=== PATIENT | female | born 1985 | race Caucasian/White ===

== ENCOUNTER 2017-06-11 15:40 | Emergency (ER) | payer SELFPAY ==
[2017-06-11] MEDS ORDERED: MAGNE/ALUM HYDROXD 30 ML UCUP ONE (17:28)
[2017-06-11] MEDS ORDERED: NA CHLORIDE 0.9% 1,000 ML ONE (17:49)
[2017-06-11] MEDS ORDERED: ACETAMINOPHEN 325 MG TABLET ONE (17:49)
[2017-06-11 18:16] LABS: Absolute Lymphocytes (CBC) 2.2 K/uL (0.7-4.9); Absolute Monocytes 0.4 K/uL (0.1-1.3); Absolute Neutrophil 7.2 K/uL (1.8-8.0); Basophils % 0.5 % (0-1.3); Eosinophils % 1.4 % (0-4.4); Hematocrit 40.4 % (36.0-45.0); Lymphocytes % 22.1 % (15.3-44.8); MCH 25.5 pg (27.0-35.0); MCV 76.3 fL (80-100); Monocytes % 3.8 % (3.3-12.3); RBC Red Blood Cell Count 5.29 M/uL (3.86-4.86)
[2017-06-11 18:25] LABS: Potassium 3.9 mEq/L (3.6-5.0)
[2017-06-11 18:31] LABS: Albumin 4.2 g/dL (3.2-5.5); Bilirubin Direct 0.1 mg/dL (0-0.2); Bilirubin Total 0.5 mg/dL (0.3-1.2); Protein, Total 7.7 g/dL (6.0-8.3)
[2017-06-11 19:29] LABS: Urine Blood NEGATIVE (NEG); Urine Glucose NEGATIVE (NEG); Urine Protein NEGATIVE (NEG)
--- NOTE | 2017-06-11 19:30 | RAD REPORT ---
EXAM DESCRIPTION: Theron Irby (2 Views)06/11/2017 7:23 pm CLINICAL HISTORY: Chest pain COMPARISON: None FINDINGS: The lungs appear clear of acute infiltrate. The heart is normal size IMPRESSION: No acute abnormalities displayed
--- NOTE | 2017-06-11 19:35 | EDPHYS ---
Physician Documentation [facility] Name: Yunior Ricci Age: 31 yrs Sex: Female : 1985 Arrival Date: 06/11/2017 Time: 15:41 Bed 26 Private MD: ED Physician Brendon Huertas HPI: 06/11 17:45 This 31 yrs old Female presents to ER via Ambulatory with complaints of Chest cp Pain. 17:45 The patient or guardian reports chest pain that is located primarily in the anterior cp chest wall, bilaterally. 17:45 Associated signs and symptoms: Pertinent positives: headache, Pertinent negatives: cp abdominal pain, cough, diaphoresis, lower extremity pain, lower extremity swelling, shortness of breath, syncope, vomiting. The chest pain is described as sharp. Duration: The patient or guardian reports a single episode, that is still ongoing, but improving. 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 - Social history:: Smoking status: Patient uses tobacco products, smokes three packs cigarettes per day. ROS: 17:50 Constitutional: Negative for body aches, chills, fever, poor PO intake. cp 17:50 Eyes: Negative for injury, pain, redness, and discharge. cp 17:50 ENT: Negative for drainage from ear(s), ear pain, sore throat, difficulty swallowing, difficulty handling secretions. 17:50 Cardiovascular: Positive for chest pain, Negative for edema, palpitations. 17:50 Respiratory: Negative for cough, shortness of breath, wheezing. 17:50 Abdomen/GI: Negative for abdominal pain, nausea, vomiting, and diarrhea, constipation, black/tarry stool, rectal bleeding. 17:50 Neuro: Positive for headache, Negative for altered mental status, syncope, near syncope, weakness. 17:50 All other systems are negative. Exam: 16:55 ECG was reviewed by the Attending Physician. cp 17:52 Constitutional: The patient appears in no acute distress, alert, awake, cp non-diaphoretic, non-toxic, well developed, well nourished. 17:52 Head/Face: Normocephalic, atraumatic. cp 17:52 Eyes: Pupils equal round and reactive to light, extra-ocular motions intact. Lids and cp lashes normal. Conjunctiva and sclera are non-icteric and not injected. Cornea within normal limits. Periorbital areas with no swelling, redness, or edema. ENT: Nares patent. No nasal discharge, no septal abnormalities noted. Tympanic membranes are normal and external auditory canals are clear. Oropharynx with no redness, swelling, or masses, exudates, or evidence of obstruction, uvula midline. Mucous membranes moist. Neck: Trachea midline, no thyromegaly or masses palpated, and no cervical lymphadenopathy. Supple, full range of motion without nuchal rigidity, or vertebral point tenderness. No Meningismus. Chest/axilla: Normal chest wall appearance and motion. Nontender with no deformity. No lesions are appreciated. 17:52 Cardiovascular: Rate: tachycardic, Rhythm: regular, Pulses: Pulses are 2+ in right radial artery and left radial artery. Edema: is not appreciated, JVD: is not appreciated. 17:52 Respiratory: the patient does not display signs of respiratory distress, Respirations: normal, no use of accessory muscles, no retractions, no splinting, no tachypnea, labored breathing, is not present, Breath sounds: are clear throughout, no decreased breath sounds, no stridor, no wheezing. 17:52 Abdomen/GI: Inspection: abdomen appears normal, Bowel sounds: active, all quadrants, cp Palpation: abdomen is soft and non-tender, in all quadrants, rebound tenderness, is not appreciated, voluntary guarding, is not appreciated, involuntary guarding, is not appreciated. 17:52 Back: pain, is absent, ROM is normal. 17:52 Skin: cellulitis, is not appreciated, no rash present. 17:52 Neuro: Orientation: to person, place \T\ time. Mentation: is normal, Cerebellar function: is grossly normal, Motor: moves all fours, strength is normal, Sensation: no obvious gross deficits. Vital Signs: 15:48 BP 129 / 79; Pulse 93; Resp 20; Temp 98.5; Pulse Ox 100% on R/A; Weight 77.11 kg; aj Height 5 ft. 6 in. (167.64 cm); Pain 7/10; 17:30 BP 102 / 72; Pulse 102; Resp 18; Pulse Ox 100% on R/A; kr2 18:30 BP 114 / 70; Pulse 93; Resp 16; Pulse Ox 100% on R/A; kr2 19:30 BP 104 / 70; Pulse 90; Resp 17; Pulse Ox 99% on R/A; kr2 15:48 Body Mass Index 27.44 (77.11 kg, 167.64 cm) aj MDM: 17:27 Patient medically screened. cp 18:00 Differential diagnosis: acute myocardial infarction, acute pericarditis, cholecystitis, cp Cholelithiasis costochondritis, pancreatitis, pulmonary embolus, stable angina, thoracic aortic disection, unstable angina. 19:33 Data reviewed: vital signs, nurses notes, lab test result(s), EKG, radiologic studies, cp plain films. 19:33 Test interpretation: by ED physician or midlevel provider: ECG, plain radiologic cp studies. 19:33 ED course: VSS. Patient reports pain markedly improved after meds. Patient reports she cp recently from boyfriend and will have to stay with friend, but feels safe. Will discharge with info for [facility]. 06/11 17:42 Order name: CBC with Diff; Complete Time: 18:22 cp 06/11 18:22 Interpretation: Normal except: RBC 5.29; MCV 76.3; MCH 25.5; RDW 16.6. cp 06/11 17:42 Order name: BMP; Complete Time: 18:40 cp 06/11 19:33 Interpretation: Normal except: GFR 69. cp 06/11 17:42 Order name: LFT's; Complete Time: 18:40 cp 06/11 17:42 Order name: D-Dimer; Complete Time: 18:40 cp 06/11 19:16 Order name: Urine Dipstick--Ancillary (enter results); Complete Time: 19:33 em1 06/11 19:33 Interpretation: Normal except: UESTR TRACE. cp 06/11 19:16 Order name: Urine --Ancillary (enter results); Complete Time: 19:33 em1 06/11 17:41 Order name: Urine Dipstick-Ancillary (obtain specimen); Complete Time: 19:25 cp 06/11 17:41 Order name: Urine Test (obtain specimen); Complete Time: 19:25 cp 06/11 17:41 Order name: EKG; Complete Time: 17:41 cp 06/11 17:41 Order name: EKG - Nurse/Tech; Complete Time: 19:25 cp 06/11 17:42 Order name: IV; Complete Time: 18:14 cp 06/11 18:40 Order name: XRAY Chest Pa And Lat (2 Views); Complete Time: 19:33 cp EC:55 Rate is 86 beats/min. Rhythm is regular. SC interval is normal. QRS interval is normal. cp QT interval is normal. No ST changes noted. Interpreted by me. Reviewed by me. Administered Medications: 14:50 Drug: Tylenol 650 mg Route: PO; kr2 16:00 Follow up: Response: No adverse reaction; Pain is decreased kr2 18:00 Drug: NS 0.9% 1000 ml Route: IV; Rate: 1 bolus; Site: left antecubital; kr2 19:59 Follow up: Response: No adverse reaction; IV Status: Completed infusion kr2 Disposition: 06/11/17 19:34 Discharged to Home. Impression: Other chest pain, Headache. - Condition is Stable. - Discharge Instructions: Chest Wall Pain, General Headache Without Cause. - Prescriptions for Ibuprofen 800 mg Oral Tablet - take 1 tablet by ORAL route every 8 hours As needed take with food; 30 tablet. - Medication Reconciliation Form, Thank You Letter, Antibiotic Education, Prescription Opioid Use, Work release form form. - Follow up: Private Physician; When: 1 - 2 days; Reason: Recheck today's complaints. - Problem is new. - Symptoms have improved. Addendum: 06/14/2017 19:03 Co-signature as Attending Physician, Brendon Huertas MD. g s Signatures: Dispatcher [employer] Nadine Roberts RN RN Anthony Lopez PA PA cp Starr, Gregory, MD MD gs Reaves, Karey RN RN kr2
--- NOTE | 2017-06-11 19:35 | ER ---
Nurse's Notes [facility] Name: Yunior Ricci Age: 31 yrs Sex: Female : 1985 Arrival Date: 06/11/2017 Time: 15:41 Bed 26 Private MD: Diagnosis: Other chest pain;Headache Presentation: 06/11 15:46 Presenting complaint: Patient states: Pressure in head that radiates down neck and into aj chest. "I'm not sure if I am having a panic attack or what, I am under a lot of stress and I just want to make sure I am okay." Patient is tearful in triage. Transition of care: patient was not received from another setting of care. Onset of symptoms was June 11, 2017. Initial Sepsis Screen: Does the patient meet any 2 criteria? No. Patient's initial sepsis screen is negative. Does the patient have a suspected source of infection? No. Patient's initial sepsis screen is negative. Care prior to arrival: None. 15:46 Method Of Arrival: Ambulatory 15:46 Acuity: KOBY 3 aj Triage Assessment: 15:48 General: Appears in no apparent distress. comfortable, Behavior is cooperative, aj anxious, crying. Pain: Complains of pain in face, scalp and chest Pain currently is 7 out of 10 on a pain scale. Neuro: Level of Consciousness is awake, alert, obeys commands, Oriented to person, place, time, situation, Appropriate for age. Cardiovascular: Reports since Chest pressure 1/10. Respiratory: Airway is patent Respiratory effort is even, unlabored, Respiratory pattern is regular, symmetrical. Derm: Skin is intact, is healthy with good turgor, Skin is pink, warm \\T\\ dry. normal. 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 - Social history:: Smoking status: Patient uses tobacco products, smokes three packs cigarettes per day. Screenin:30 Abuse screen: Denies threats or abuse. Denies injuries from another. Nutritional kr2 screening: No deficits noted. Tuberculosis screening: No symptoms or risk factors identified. Fall Risk None identified. Assessment: 17:30 General: Appears in no apparent distress. comfortable, well groomed, well developed, kr2 well nourished, Behavior is calm, cooperative, appropriate for age. Pain: Complains of pain in chest, sides of head Pain radiates to left scapular area Pain currently is 1 out of 10 on a pain scale. Quality of pain is described as pressure, Pain began suddenly, Is continuous, Alleviated by nothing. Neuro: Level of Consciousness is awake, alert, obeys commands, Oriented to person, place, time, situation, Appropriate for age. Cardiovascular: Capillary refill < 3 seconds in bilateral fingers Patient's skin is warm and dry. Respiratory: Airway is patent Respiratory effort is even, unlabored, Respiratory pattern is regular, symmetrical. GI: Abdomen is flat, non-distended. : Urine is clear. EENT: Oral mucosa is moist. Derm: Skin is intact, is healthy with good turgor, Skin is pink, warm \\T\\ dry. Musculoskeletal: Circulation, motion, and sensation intact. 18:30 Reassessment: Patient appears in no apparent distress at this time. Patient and/or kr2 family updated on plan of care and expected duration. Pain level reassessed. Patient is alert, oriented x 3, equal unlabored respirations, skin warm/dry/pink. Patient states feeling better. Patient states symptoms have improved. 19:30 Reassessment: Patient appears in no apparent distress at this time. Patient and/or kr2 family updated on plan of care and expected duration. Pain level reassessed. Patient is alert, oriented x 3, equal unlabored respirations, skin warm/dry/pink. Patient states she is having a difficult time right now because she was kicked out of her home today and her family lives far away. Provider is aware. Patient given information for the [facility] Crisis Line. States she will be safe and will call the hot line Patient denies pain at this time. Vital Signs: 15:48 BP 129 / 79; Pulse 93; Resp 20; Temp 98.5; Pulse Ox 100% on R/A; Weight 77.11 kg; aj Height 5 ft. 6 in. (167.64 cm); Pain 7/10; 17:30 BP 102 / 72; Pulse 102; Resp 18; Pulse Ox 100% on R/A; kr2 18:30 BP 114 / 70; Pulse 93; Resp 16; Pulse Ox 100% on R/A; kr2 19:30 BP 104 / 70; Pulse 90; Resp 17; Pulse Ox 99% on R/A; kr2 15:48 Body Mass Index 27.44 (77.11 kg, 167.64 cm) aj ED Course: 15:41 Patient arrived in ED. as 15:48 Triage completed. aj 15:48 Arm band placed on left wrist. Patient placed in waiting room, Patient notified of wait aj time. EKG completed in triage. Results shown to MD. 17:27 Anthony Nguyen PA is PHCP. cp 17:27 Brendon Huertas MD is Attending Physician. cp 17:30 Patient has correct armband on for positive identification. Bed in low position. Call kr2 light in reach. Side rails up X 1. pest locator on. Pulse ox on. NIBP on. Door closed. Head of bed elevated. 17:30 Patient maintains SpO2 saturation greater than 95% on room air. kr2 17:46 Joy Garcia, CARMENCITA is Primary Nurse. kr2 18:00 Inserted saline lock: 22 gauge in left antecubital area, using aseptic technique. Blood kr2 collected. 19:16 Patient moved to radiology via wheelchair. bb2 19:16 X-ray completed. Patient tolerated procedure well. bb2 19:16 Patient moved back from radiology. bb2 19:17 XRAY Chest Pa And Lat (2 Views) In Process Unspecified. EDMS 19:57 No provider procedures requiring assistance completed. IV discontinued, intact, kr2 bleeding controlled, No redness/swelling at site. Pressure dressing applied. Administered Medications: 14:50 Drug: Tylenol 650 mg Route: PO; kr2 16:00 Follow up: Response: No adverse reaction; Pain is decreased kr2 18:00 Drug: NS 0.9% 1000 ml Route: IV; Rate: 1 bolus; Site: left antecubital; kr2 19:59 Follow up: Response: No adverse reaction; IV Status: Completed infusion kr2 Outcome: 19:34 Discharge ordered by . cp 19:57 Discharged to Unknown Patient states she was kicked out of her home today. Given [address] Crisis Hotline information 19:57 Condition: good 19:57 Discharge instructions given to patient, Instructed on discharge instructions, follow up and referral plans. medication usage, Demonstrated understanding of instructions, follow-up care, medications, Prescriptions given X 1. 20:00 Patient left the ED. kr2 Signatures: Dispatcher [employer] EDNadine Whitney RN RN aj Martinez, Amelia as Page, Corey, PA PA cp Reaves, Karey, RN RN kr2 Yazmin West bb2
--- NOTE | 2017-06-12 16:29 | EKG ---
Test Date: 2017-06-11 Test Time: 15:51:30 Ordering Machine Operator: CAMRYN MEASUREMENT RESULTS: Intervals: Rate: 86 SC: 122 QRSD: 78 QT: 376 QTc: 449 [place]: P: 77 SC: 122 QRS: 4 T: 68 INTERPRETIVE STATEMENTS: Normal sinus rhythm Normal ECG No previous ECG available for comparison Electronically Signed On 06-12-17 16:24:05 CDT by Harjit Adair
== END 2017-06-11 20:00 | disposition home or self-care (01) ==
LOC: ER 15:40
DX: R07.89 Other chest pain (principal); F17.210 Nicotine dependence, cigarettes, uncomplicated
CPT/HCPCS: 36415; 71046; 80048; 80076; 81003; 81025; 85025; 85379; 93005; 96360; 96361; 99285; J7030